=== PATIENT | female | born 1990 | race Caucasian/White ===

== ENCOUNTER 2025-02-21 11:48 | Outpatient (CLI) | payer BC, SELFPAY ==
[2025-02-21 08:33] VITALS: BMI 24.5
[2025-02-21 12:19] LABS: Hematocrit 39.8 % (37.0-47.0); Hemoglobin 14.0 g/dL (12.2-16.2); Immature Granulocytes % 0.4 %; Mean Corpuscular HGB Conc 35.2 g/dL (31.8-35.4); Mean Corpuscular Hemoglobin 30.4 pg (27.0-31.2); Mean Corpuscular Volume 86.3 fl (81-99); Nucleated Red Blood Cells % 0 %; Platelet Count 238 K/mm3 (142-424); Red Blood Count 4.61 M/mm3 (4.20-5.40); Red Cell Distribution Width-SD 38.4 fL; White Blood Count 10.7 K/mm3 (4.8-10.8)
[2025-02-21 12:27] LABS: Albumin Level 4.4 g/dl (3.5-5.0); Chloride 105 mmol/L (98-107); Potassium 3.3 mmoL/L (3.5-5.1); Sodium 139 mmol/L (136-145)
--- OUTSIDE RECORDS SUMMARY | 2025-02-21 12:27 | XMS_ITS | Referral Summary ---
Author Organization [employer] ([place], [place], [place], [place]) Address [address] [place] [address] Care Team Providers Care Director Of Food And Beverage Services Name Role Phone Shayy Wolff PA-C Primary Care Provider [phone] Allergies No known active allergies Medications oxyCODONE (ROXICODONE) 5 MG immediate release tablet Take 1 tablet (5 mg total) by mouth every 4 (four) hours as needed for pain Look-octavio e/Sound-ali ke medication* *. Max Daily Amount: 30 mg 15 tablet 10/21/2024 Active Active Problems Problem Noted Date Diagnosed Date Acute appendicitis 10/21/2024 Social History Tobacco Use Types Packs/Day Years Used Date Smoking Tobacco: Never Passive Smoke Exposure: Never Smokeless Tobacco: Never Tobacco Cessation:Counseling Given: Not Answered Alcohol Use Standard Drinks/Week Comments Not Currently 0 (1 standard drink = 0.6 oz pur e alcohol) Utilities Answer Date Recorded In the past 12 months, has t he [employer], gas, oil, or water [employer] threatened to shut off services in your home? No 10/21/2024 Interpersonal Safety Answer Date Record ed How often does anyone, arun roque family and friends, physically hurt you? Never 10/21/2024 How often does anyone, arun roque family and friends, insult or talk down to you? Never 10/21/2024 How often does anyone, arun roque family and friends, threaten you with harm? Never 10/21/2024 How often does anyone, arun roque family and friends, scream or curse at you? Never 10/21/2024 Housing Stability Answer Date Recorded What is your living situation today? I have a st [place] place to live 10/21/[address] you li ve. Do you have problems with any of the following? None of the above 10/21/2024 Food Insecurity Answer Date Recorded Within the past 12 months, y ou worried that your food would run out before you got money to buy more. Never true 10/21/2024 Within the past 12 months, t he food you bought just didn't last and you didn't have money to get more. Never true 10/21/2024 Transportation Needs Answer Date Record ed In the past 12 months, has l ack of reliable transportation kept you from medical appointments, meetings, work or from getting things needed for daily living? No 10/21/2024 Financial Resource Strain Answer Date R ecorded How hard is it for you to pa y for the very basics like food, housing, medical care, and heating? Would you say it is: Not hard at all 10/21/2024 Employment Answer Date Recorded Do you want help finding or keeping work or a job? I do not need or want help 10/21/2024 Family and Community Support Answer Jeremy e Recorded If for any reason you need h elp with day-to-day activities such as bathing, preparing meals, shopping, managing finances, etc., do you get the help you need? I don't need any help 10/21/2024 Feeling Lonely or Isolated 0 10/21 Educational Attainment Answer Date David rded Do you speak a language other than Togolese at [facility]? No 10/21/2024 Do you want help with school or training? For example, starting or completing job training or getting a high school diploma, GED or equivalent. No 10/21/2024 Physical Activity Answer Date Recorded Number of minutes of exercise per week 0 10/21/2024 Self Management Answer Date Recorded Because of a physical, menta l, or emotional condition, do you have serious difficulty concentrating, remembering, or making decisions? (5 years or older) No 10/21/2024 Because of a physical, menta l, or emotional condition, do you have difficulty doing errands alone such as visiting a doctor's office or shopping? (15 years or older) No 10/21/2024 Substance Use Answer Date Recorded How many times in the past y ear have you used prescription drugs for non-medical reasons? Never 10/21/2024 How many times in the past year have you used [place] legal drugs? Never 10/21/2024 Mental Health Answer Date Recorded Calculation of above two rows 0 Comments Unknown Sex and Gender Information Value Date Recorded Sex Assigned at Female 10/28/2021 12:48 PM CDT Legal Sex Female 12:48 PM CDT Gender Identity Female 10/28/2021 12:48 PM CDT Sexual Orientation Not on file Last Filed Vital Signs Vital Sign Reading Time Taken Comments Blood Pressure 119/68 10/22/2024 11:15 AM EDT Pulse 75 10/22/2024 11:15 AM EDT Temperature 36.7 C (98 F) 10/22/2024 11:12 AM EDT Respiratory Rate 16 10/22/2024 11:15 AM EDT Oxygen Saturation 96% 10/22/2024 11:12 AM EDT Inhaled Oxygen Concentration - - Weight 58.3 kg (128 lb 8.5 oz) 10/21/2024 8:40 A M EDT Height 154.9 cm (5' 1 ) 10/21/2024 8:40 AM EDT Body Mass Index 24.29 10/21/2024 8:40 AM EDT Plan of Treatment Not on file Insurance BLUE CROSS/BLUE SHIELD Advance Directives For more information, please contact: [phone] * Full Code (Latest Code Status on File) Date Activated Date Inactivated Comments 10/21/2024 5:20 PM 10/22/2024 1:03 PM Care Teams Director Of Food And Beverage Services Relationship Specialty Start Date End Date Shayy Wolff PA-C [address] [place] [address] PCP - General Physician Wheat Buyer 10/21/24
--- OUTSIDE RECORDS SUMMARY | 2025-02-21 12:27 | XMS_ITS | Data Portability ---
Author Organization [employer] Address [address] [place] [address] Assessment No assessment recorded. Plan of Treatment Reminders Order Date Submit Date Provider Last Modified By Organization Details Last Modified Time Details Appointments None recorded. Lab None recorded. Referral gynecologis t referral - first available appt 2024 025 SELENA Cheek DO, [address], [place], [address], 15:52:03 Procedures None recorded. Surgeries None recorded. Imaging None recorded. Medication Orders None recorded. Patient TargetsNo targets recorded. Patient InstructionsNo instructions recorded. Reason for Referral Distribution Field Engineer Referral for Gy necologic examination first available appt Referring Physician: Shayy Wolff, Family Medicine, Encounter Date: 10/27/2024 Procedures Surgical History Date Name Laterality Status Provider Name and Address Organization Details Recorded Time [facility] 10/27/2024 15:55:38 Imaging Results None recorded. Procedure Notes None recorded. Medical Equipment None Reported. Allergies No known drug allergies Medications Name Sig Start Date Stop Date Status Note LastModified by Organization Details LastModified Time amoxicillin 875 mg-potassium clavulanate 125 mg tablet TAKE 1 TABLET BY MOUTH 2 (TWO) TIMES DAILY WITH BREAKFAST AND DINNER FOR 5 DAYS. active Not Available Not Available No t Available Vitals Date Recorded Body weight Body mass index (BMI) Body height Oxygen saturation Oxygen saturation in Arterial blood by Pulse oximetry Heart rate Body temperature Systolic And Diastolic Provider Name and Address Organization Details Last Updated DateTime 96094.8 2 g 24.2 kg/m2 154.94 cm 98 % 98 % 74 /min 98.3 [degF] 106/74 mm[Hg] [facility] [employer] 15:59:21 Social History Question Answer Notes LastModified by Organizat ion Details LastModified Time Tobacco Smoking Status Never Smoker [facility]ad[facility]o [facility]vel [facility], [employer] 10/27/2024 15:55:38 Do You Have An Advance Directive? No Information not available 10/27/2024 Is Your Home Air Conditioned? Yes Information not available 10/27/2024 If You Are , What Was Your Level Of Alcohol Consumption Prior To ? None Information not available 10/27/2024 Do You Wear A Helmet When Biking? Yes Information not available 10/27/2024 Are You Blind Or Do You Have Difficulty Seeing? No Information not available 10/27/2024 What Is Your Level Of Caffeine Consumption? Moderate Information not available 10/27/2024 What Type Of Unix Developer Do You Use? Relative Information not available 10/27/2024 Have You Been To An Area Known To Be High Risk For COVID-19? No Information not available 10/27/2024 Are You Deaf Or Do You Have Serious Difficulty Hearing? No Information not available 10/27/2024 What Type Of Diet Are You Following? REGULAR Information not available 10/27/2024 What Is The Highest Grade Or Level Of School You Have Completed Or The Highest Degree You Have Received? [id number] Information not available 10/27/2024 Who Is Your Employer? [employer] Information not available 10/27/2024 How Many Days Of Moderate To Strenuous Exercise, Like A Brisk Walk, Did You Do In The Last 7 Days? 0 Information not available 10/27/2024 Have There Been Any Changes To Your Family Or Social Situation? No Information no t available 10/27/2024 Are There Any Guns Present In Your Home? No Information not available 10/27/2024 Which Of Your Hands Is Dominant? Right Information not available 10/27/2024 What Is Your Home Situation? Other Information not available 10/27/2024 Do You Have A Medical Power Of Wheel Grinder? No Information not available 10/27/2024 Are There Any Occupational Health Risks Where You Work? No Information not available 10/27/2024 Do You Have Any Pets? Yes Information not available 10/27/2024 What Is Your Relationship Status? Single Information not available 10/27/2024 Have You Repeated Any Grades? No Information not available 10/27/2024 Do You Use Your Seat Belt Or Car Seat Routinely? Yes Information not available 10/27/2024 Are You Sexually Active? No Information not available 10/27/2024 Do You Have Any Siblings? Yes Information not available 10/27/2024 Do You Have Smoke And Carbon Monoxide Detectors In Your Home? Yes Information not available 10/27/2024 Are You Passively Exposed To Smoke? Yes Information no t available 10/27/2024 Are There Any Smokers In Your House? No Information not available 10/27/2024 Do You Participate In Social Media? Yes Information not available 10/27/2024 Do You Use Sunscreen Routinely? Yes Information not available 10/27/2024 Have You Recently Traveled Abroad? No Information not available 10/27/2024 Do You Have Difficulty Walking Or Climbing Stairs? No Information not available 10/27/2024 Are You Currently In School? No Information not available 10/27/2024 Do You Have Any Dietary Restrictions? No Information not available 10/27/2024 Sex: Unknown Functional Status Question Answer Note LastModified by Organizat ion Details LastModified Time Do you use any illicit or recreational drugs? No Information not available 10/27/2024 What is your level of alcohol consumption? None Information not available 10/27/2024 Are you currently employed? Yes Information not available 10/27/2024 Do you have transportation difficulties? No Information not available 10/27/2024 Are you able to walk independently without assistance or assistive devices? [employer] Information not available 10/27/2024 Do you have difficulty doing errands alone? No Information not available 10/27/2024 Are you able to care for yourself independently? Yes Information not available 10/27/2024 Do you have difficulty dressing, bathing, grooming, or toileting? No Information not available 10/27/2024 What is your exercise level? Occasional Information not available 10/27/2024 Mental Status Question Answer Note LastModified by Organizat ion Details LastModified Time Do you feel stressed (tense, restless, nervous, or anxious, or unable to sleep at night)? [id number] Information not available 10/27/2024 Do you have difficulty concentrating, remembering or making decisions? No Information no t available 10/27/2024 Are you or have you been involved with bullying? No Information not available 10/27/2024 Family History Relationship Description Onset Age of this Age Resolved Age Notes LastModified by Organization Details LastModified Time Maternal Grandmother Malignant neoplasm of breast Not available 2024 15:55:37 Maternal Grandmother Heart disease Not available 2024 15:55:37 Medical History Condition Response Hospitalizations Y Emergency room visit since last appointm ent. Y Bladder or Kidney Problems Y Headaches Y Kidney Stones Y Gynecological History Statement/Question Response Abnormal Pap Y Flow Moderate Date of LMP 10/13/2024 HPV Vaccine Y Duration of Flow (days) 4 to 5 Age at Menarche 13 Most Recent Mammogram Age at First Child 23 Frequency of Cycle (Q days) 28 Menses Monthly Y Date of Last Pap Smear LMP Approximate Obstetrics History GPAL:G 2 P 1 0 1 1 Type Value Multiple Births 0 Full Term 1 Induced 0 Spontaneous 1 Premature 0 Living 1 Ectopics 0 Total 2 Immunizations Vaccine Type Date Status Note Provider Nam e and Address Organization Details Recorded Time DTP 6 completed Not Available [facility] 10/27/2024 15:49:10 OPV, trivalent 6 completed Not Available [facility] 10/27/2024 15:49:10 MMR 6 completed Not Available [facility] 10/27/2024 15:49:10 Tdap 4 completed Not Available [facility] 10/27/2024 15:49:10 COVID-19, mRNA, LNP-S, PF, 100 mcg/0.5mL dose or 50 mcg/0.25mL dose 0 completed Not Available [facility] 10/27/2024 15:49:10 COVID-19, mRNA, LNP-S, PF, 100 mcg/0.5mL dose or 50 mcg/0.25mL dose 1 completed Not Available [facility] 10/27/2024 15:49:10 Influenza, split virus, trivalent, preservative 2 completed Not Available [facility] 10/27/2024 15:49:10 Past Encounters Encounter ID Performer Location Encounter Start Date Encounter Closed Date Diagnosis/Indication Diagnosis SNOMED-CT Code Diagnosis ICD10 Code Diagnosis IMO Codes Diagnosis Note [id number] DEMETRIUS Mir [address] [address] 10/27/2024 15:48:10 10/27/2024 16:22:49 Gynecologic examination 43484207 Z01.127 5501809 History of appendectomy 798893795 Z90.49 100691 Health Concerns Section Related Observation LastModified by Organization Detai ls LastModified Time None Recorded Concern Status LastModified by Organization Details LastModified Time None Recorded Advance Directives Directive N: Payers Insurance Date Sequence Insurance Name Policy Number Policy Pabon Covered Member ID Pabon Member ID Guarantor Name 10/27/2024 1 [place] ([place] PROVIDERS ONLY PPO) [id number] Cierra Vieyra [id number] Cierra Vieyra Notes Date Note Type Note Provider Name and Address Organization Details Recorded Time 10/27/2024 text/html ROS as noted in the HPI Patient presents to establish care.Had an appendectomy a little over a week ago. Feeling better.No other medical problems. DEMETRIUS Mir [address] [place] [address], [id number], [facility] 10/27/2024 16:49:26 OBGyn Episode No OBEpisode recorded.
--- OUTSIDE RECORDS SUMMARY | 2025-02-21 12:27 | XMS_ITS | Clinical Summary ---
Author Organization [employer] ([place], [place], [place], [place]) Address [address] [place] [address] Care Team Providers Care Admissions Advisor Name Role Phone Shayy Wolff PA-C Primary Care Provider [phone] Allergies No known active allergies Medications oxyCODONE [...] the past 12 months, has t he [employer], gas, oil, or water [employer] threatened to shut off services in your [...] speak a language other than Togolese at [facility]? No 10/21/2024 Do you want help with [...] 10/21/2024 8:40 AM EDT Plan of Treatment Health Maintenance Due Date Last Done Comments Depression Screening (12+) 2003 HIV Screening 2006 Hepatitis C Screening 2009 Pap Smear 2012 DTAP/TDAP/TD VACCINES (3 - T d or Tdap) 07/29/2023 07/28/2013, 12/07/1995 COVID-19 VACCINE ( - 2024-2 6 season) 2025 05/29/2020, 05/01/2020 Influenza Vaccine (#1) 2025 Tobacco Cessation Counseling and Screening (12+) 10/21/2025 10/21/2024 Pneumococcal Vaccine: 0-49 Years Aged Out No longer eligible b ased on patient's age to complete this topic Insurance BLUE CROSS/BLUE SHIELD Advance Directives For more information, please contact: [phone] * Full Code (Latest Code Status on File) Date Activated Date Inactivated Comments 10/21/2024 5:20 PM 10/22/2024 1:03 PM Care Teams Admissions Advisor Relationship Specialty Start Date End Date Shayy Wolff PA-C [address] [place] [address] PCP - General Physician Technical Instructor 10/21/24
[2025-02-21 12:28] LABS: HCG Qualitative, Serum Negative (Negative)
[2025-02-21 12:30] LABS: Alanine Aminotransferase 17 U/L (12-78); Albumin/Globulin Ratio 1.3 (1.1-1.8); Alkaline Phosphatase 85 U/L (38-126); Anion Gap 11.3 mEq/L (5-15); Aspartate Amino Transferase 28 U/L (14-36); Bilirubin,Total 1.3 mg/dl (0.2-1.3); Blood Urea Nitrogen 7 mg/dl (7-17); Calcium 9.0 mg/dl (8.4-10.2); Carbon Dioxide 26 mmol/L (22.0-30.0); Creatinine Clearance Estimated 106 mL/min (50-200); Creatinine,Serum 0.70 mg/dl (0.52-1.04); Estimated Glomerular Filt Rate 96 ml/min (>60); GFR (African American) 117 ML/MIN (>60); Globulin 3.5 g/dL (1.3-3.2); Glucose 105 mg/dl (74-100); Total Protein,Serum 7.9 g/dl (6.3-8.2)
[2025-02-21 17:53] LABS: Barbiturates Screen,Urine Negative ng/ml (<200)
[2025-02-21 17:54] LABS: Amphetamine/Metha Screen,Urine Negative ng/ml (<1000); Methadone Screen,Urine Negative ng/ml (<300)
[2025-02-21 17:56] LABS: Opiate Screen,Urine Negative ng/ml (<300)
[2025-02-21 17:57] LABS: Phencyclidine Screen,Urine Negative ng/ml (<25)
[2025-02-21 18:05] LABS: Benzodiazepines Screen,Urine Negative ng/ml (<200)
== END 2025-02-21 23:59 | disposition home or self-care (01) ==
LOC: PREOP 11:49
PROVIDERS: PCP Physician Assistant; Visit Provider Obstetrics & Gynecology
DX: Z01.812 Encounter for preprocedural laboratory examination (principal); R87.619 Unspecified abnormal cytological findings in specimens from cervix uteri
CPT/HCPCS: 80053; 80307; 84703; 85025

== ENCOUNTER 2025-02-23 06:44 | Day surgery (SDC) | payer BC, SELFPAY ==
[2025-02-21 14:35] VITALS: BMI 24.5
[2025-02-23] VITALS (10 sets, daily range): BP systolic 91–121; BP diastolic 50–73; PULSE 69–101; RESP 16–18; TEMP 36.2–38; O2SAT 97–99; BMI 24.5
[2025-02-23] MEDS: LACTATED RINGERS 1000ML 1,000 ML 25 ML IV (07:24)
[2025-02-23] MEDS: SCOPOLAMINE 1.5MG/72HRS PATCH 1 EACH TD (07:29)
--- NOTE | 2025-02-23 07:40 | P.PNANES_ITS ---
[facility] Disclaimer: The information contained in this section may have been updated after the patient was seen, as this information can be updated by other users. Medical History Kidney stones Surgical History History of appendectomy Family History Other Cancer Coronary artery disease Heart attack Hypertension Kidney disease Stroke Substance abuse Social History (Updated 02/23/25 @ 07:10 by Xochilt Hebert RN) Smoking Status: Never smoker alcohol intake: never substance use type: denies use current occupational status: employed Travel in the last 8 weeks?: None [facility] Anesthesia Checklist Patient Identification Patient Identification: Arm Band and Verbal (Name & ) Structural Data Admitted From: Home Planned Operative Procedure/s: Cone biopsy Consent for Planned Operative Procedure(s) Verified: Yes Verified Documents: Surgical Consent NPO Status Verified Time NPO: 00:00 Chart Verification Results Verified: None Additional verifications Anesthesia Reactions: No Airway Assessment Mallampati Score:: Class II C-Spine Mobility Assessed: Yes TMJ Mobility Assessed: Yes Dentition: Good Dentition Neurological Assessment Level of Consciousness: Awake, Alert and Appropriate Hx Seizures: No Numbness or tingling in extremities: No Anesthesia Plan Anesthesia Risk discussed: Yes Anesthesia Plan: Verified ASA Class: I Anesthesia Type: General
[2025-02-23] MEDS: LIDOCAINE 1% W/EPI 1:100,000 20ML VIAL 20 ML (09:15)
--- NOTE | 2025-02-23 09:38 | SUR.OPER ---
Witnessed new consent with MD Valencia present. Mother verbalized understanding about changes/update. POC continues
[2025-02-23] MEDS: METRONIDAZ/SOD CHL 500 MG/100 ML PIGGYBACK 100 MG IV (09:40)
--- NOTE | 2025-02-23 10:24 | SUR.OPER ---
0920- decision made by to sew vaginal cuff then do diagnostic laparoscopy with . Complete table from cone biopsy counted and correct and removed from the room. Two tables set up for the remainder of the vaginal procedure, and another table for the Laparoscopic portion of the case. Initial and final count for vaginal table laps-20 rays-20 blades-2 bovie-1 suture-2 Initial count for the lap table. Final count will be added in another note. rays-10 blades-1 hypo-1 suture1 0930- Family was updated by and preop nurses of the change in plans and consents were updated accordingly. Clarissa began procedure laparoscopically at 1005.
--- NOTE | 2025-02-23 10:50 | SUR.OPER ---
family updated of status at this time
--- NOTE | 2025-02-23 11:12 | EXP.ANES.I ---
[facility] Anesthesia Record Part I Anesthesia Record I Intake, IV Amount: 1,600 Hydration: Adequate Estimated blood loss (mL): 100 Urine output (mL): 100 Blood Products used (#): none Blood Pressure: 121/63 SaO2: 97 Pulse Rate: 101 Airway Patency: Patent Respiratory Rate: 18 Temperature: 99.3 F Patient is:: Awake and Stable Stable to PACU at:: 11:20
[2025-02-23] MEDS: KETOROLAC 30MG/ML VIAL 30 MG IV (11:25)
--- NOTE | 2025-02-23 11:26 | P.OP_ITS ---
Date of procedure: 02/23/25 Pre-op Diagnosis:: 1. 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 Colposcopy on 01/23/2025 and resulted as ECC with high grade squamous intraepithelial lesion extensively involving the endocervical glands with tubal metaplasia also present there was secretory phase endometrium also present which was negative for atypia or malignancy Biopsy at 10:00 was H ELMO/CARMINE-3 Biopsy at 12:00 was H ELMO/CARMINE-3 3. Completed childbearing 4. History of a Pap smear in 2013 which she was told was precancerous and she should follow-up for cryotherapy Post-op Diagnosis:: 1. 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 Colposcopy on 01/23/2025 and resulted as ECC with high grade squamous intraepithelial lesion extensively involving the endocervical glands with tubal metaplasia also present there was secretory phase endometrium also present which was negative for atypia or malignancy Biopsy at 10:00 was H ELMO/CARMINE-3 Biopsy at 12:00 was H ELMO/CARMINE-3 3. Completed childbearing 4. History of a Pap smear in 2013 which she was told was precancerous and she should follow-up for cryotherapy 5. Incidental posterior colpotomy, repaired vaginally and laparoscopic evalua tion of the bowel Procedure performed:: Cold knife cone Surgeon:: Manjula Valencia DO Increment Manager(s):: Brown Romo MD and Kiran Rosario MD NYLON OPERATOR:: Magali Sanchez Anesthesia: GETA Estimated blood loss (mL): 150 Operative findings:: Pelvic exam revealed the entirety of the transformation zone was able to be identified. The lesion extended significantly on the lateral aspect at the 9 o'clock position. Cervix removed in its entirety. Posterior colpotomy repaired. Laparoscopic exam revealed normal without injury bowels. Peritoneal defect repaired laparoscopically. Cystoscopy revealed no bladder defect and peristalsing ureters Operative note:: Patient was wheeled back to the operating room and placed under general anesthesia without difficulty. She was placed in the dorsal lithotomy position with yellowfin stirrups. She was prepped and draped in normal sterile fashion. The OR staff was properly equipped with HPV prophylaxis masks. The a coated bivalve speculum was placed in the vagina to identify the cervix. Cervix was prepped with Lugol's. Given the nature of the lesion it was not easily accessible with a bivalve coated speculum and the syringe was not long enough to inject the local. The bivalve coated speculum was removed and replaced with a weighted speculum and right angle retractor. A Vicryl suture was used to sanya the 12 o'clock position on the cervix. The transformation zone was seen in its entirety. 10 mL of lidocaine with epinephrine was injected into each of the 4 quadrants. An 11 blade scalpel was used to transect the entirety of the transformation zone. The lesion extended significantly to the lateral aspect of the cervix at the 9 o'clock position. At the start of the case an attempt was made to place the backside of a proctoscopy swab so that I could cut down to the proctoscopy swab in a circumferential manner however this would not pass through the cervical canal as it was very stenotic the uterine sound was attempted but also was unable to be passed through the cervical canal secondary to stenosis. Following excision of the transformation zone and removal of the specimen which was tagged at the 12 o'clock position immediately bowel contents were noted with visualization of omentum with exploration I could also see the small bowel. Immediately I called for assistance from my senior c software developer, Dr. Rosario and general surgery, Dr. Romo. She received 2g of Ancef and 500 mg of metronidazole for infection prophylaxis. The abdominal cavity and bowel was inspected to the best of our ability vaginally. The vaginal cuff was grasped with ring forceps and Allis clamps to identify the edges and for added hemostasis. A Lindsay catheter was placed and noted to be draining clear urine. The vaginal peritoneum was identified grasped with an Allis and sutured closed the vaginal colpotomy was closed in a running locked fashion with 0 Vicryl. Hemostasis was noted. Abdominal portion General surgery was present and laparoscopic access was achieved the to run the bowel. Attention was then turned to the abdomen. Skin just below the umbilicus was injected with 0.5% marcaine. A 5 mm infraumbilical incision was made. Veress needle was tested and inserted intrabdominally. Opening pressure was 4 mm Hg. The peritoneal cavity was insulflated to 15 mm Hg. Laparoscope within 5 mm blunt trocar was inserted intrabdominally under direct visualization. Obturator and scope were removed. Laparoscope was inserted into the trocar sleeve. Abdomen and pelvis were viewed in its entirety. Bilateral ureters were identified. Ureters noted to be peristalsing bilaterally multiple times of the case. Examination of the peritoneal cavity revealed no signs of injury and normal anatomic structures. Bowel was evaluated and swept cephalad by general surgery. No bowel injuries or abnormalities noted. LLQ port site was transilluminated and injected with 0.5% marcaine. A 5 mm incision was made and 5 mm trocar was inserted intraabdominally under direct laparoscopic visualization. Obturator was removed and sleeve was left in place. An 11 mm trocar was placed in the right lower quadrant. The edge of the peritoneum was noted to be bleeding and an 11 mm was used so that the Endo Stitch could be used to place a stitch. At the ape x of the colpotomy on the patient's right the peritoneum was noted to have a little bit of bleeding, this was closed with the Endostitch V-Lock barbed stitch. Pelvis was irrigated. Intraabdominal pressure was decreased to 5 mm Hg. Hemostasis was noted. Prior to completing and removing the laparoscopic ports cystoscopy was completed. Cystoscopy Cystoscopy was performed with a 70 degree cystoscope and distended with normal saline. Inspection of the bladder showed a normal-looking, blue dyed, smooth bladder mucosa with no evidence of injury, suture, puckering, or other abnormalities.? Both ureteral meatuses were visualized and were noted to be expelling urine in routine fashion.? Cystoscope was removed. Pneumoperitoneum was released into the atmosphere and trocars were removed under direct laparoscopic visualization to ensure no herniation of bowel or omentum. Skin incisions were reapproximated with 4-0 Monocryl. Dermabond was applied over closed skin incisions. Family was updated mutliple times throughout the process and i had an indepth discussion with the family after the case. Condition: stable Disposition: PACU Specimens:: cervix Complications:: incidental posterior colpotomy made and repaired
[2025-02-23] MEDS: MORPHINE 2MG/ML SYRINGE 2 MG IV (11:40)
--- NOTE | 2025-02-23 12:15 | SUR.PHASEII ---
Dr Valencia at bedside at this time
[2025-02-23 14:00] LABS: Microscopic,Cath URINE MICROSCOPIC (MICROSCOPIC)
[2025-02-23 14:13] LABS: Appearance,Urine/Cath CLEAR (Clear); Bilirubin,Cath Negative (Negative); Blood, Urine/Cath 3+ (Negative); Color,Urine/Cath YELLOW (Yellow); Glucose,Urine/Cath (UA) Negative (Negative); Ketones,Urine/Cath 1+ (Negative); Leukocyte Esterase,Cath Negative (Negative); Nitrate,Cath Negative (Negative); PH,Urine/Cath 6.5 (5.0-8.5); Protein,Urine/Cath Negative (Negative); Specific Gravity, Urine/Cath 1.010 (1.005-1.030); Urobilinogen,Cath 0.2 EU/dl (0.2)
[2025-02-23 14:52] LABS: Bacteria,Urine/Cath 1+ /lpf; WBC,Urine/Cath Occasional #/hpf (0-3)
--- NOTE | 2025-02-23 15:11 | SUR.OPER ---
1045- All counts for laparoscopic table counted and correct.
[2025-02-26 12:48] VITALS: BP 100/50; PULSE 78; RESP 17; TEMP 37.1; O2SAT 99
--- NOTE | 2025-02-26 12:48 | EXP.ANES.II ---
[facility] Anesthesia Record Part II Anesthesia Record Part II Discharge Time: 12:15 Destination: Surgical Day Care (OP Surgery) PACU nurse assessment reviewed?: Yes Patient Condition:: Good Anesthesia Complications:: None Swallowing reflex intact?: Yes Airway Patency: Patent Cyanosis?: No Blood Pressure: 100/50 SaO2: 99 Respiratory Rate: 17 Pulse Rate: 78 Temperature: 98.7 F Mental Status: Alert & Oriented Pain level:: 0 Nausea and/or vomitting:: None Intake, IV Amount: 0 Hydration: Adequate
== END 2025-02-23 12:15 | disposition home or self-care (01) ==
PROVIDERS: PCP Physician Assistant; Visit Provider Obstetrics & Gynecology
PROC: 0UBC7ZZ Excision of Cervix, Via Natural or Artificial Opening (ICD-10-PCS; CPT 57520; principal; 2025-02-23 08:30)
DX: D06.9 Carcinoma in situ of cervix, unspecified (principal); I10 Essential (primary) hypertension
CPT/HCPCS: 49329; 57520; 51702; 81001; J1100; J1200; J1836; J1885; J2003; J2004; J2250; J2270; J2405; J2704; J3010; J7120